=== PATIENT | female | born 1985 | race Caucasian/White ===

== ENCOUNTER 2016-12-11 06:40 | Inpatient (IN) | payer OTHER ==
[2016-12-11 09:24] LABS: % IMMATURE GRANULYOCYTES 0.6 % (0.0-1.1); ABSOLUTE IMMATURE GRANULOCYTES 0.07 10^3/uL (0.00-0.10); ADD DIFF? NO; ADD MORPH? NO; ADD SCAN? NO; ATYPICAL LYMPHOCYTE FLAG 0 (0-99); FRAGMENT RBC FLAG 0 (0-99); HEMATOCRIT 35.9 % (38.0-47.0); HEMOGLOBIN 12.1 g/dL (12.6-16.3); LEFT SHIFT FLG 0 (0-99); LIPEMIA HEMOLYSIS FLAG 80 (0-99); MEAN CELL HEMOGLOBIN 29.1 pg (27.9-34.1); MEAN CELL HEMOGLOBIN CONCENTR. 33.7 g/dL (32.4-36.7); MEAN CELL VOLUME 86.3 fL (81.5-99.8); PLATELET CLUMPS FLAG 0 (0-99); PLATELET COUNT 193 10^3/uL (150-400); RED BLOOD CELL COUNT 4.16 10^6/uL (4.18-5.33); RED CELL DISTRIBUTION WIDTH 14.6 % (11.5-15.2)
[2016-12-11] MEDS ORDERED: OXYTOCIN/RINGERS LACTATE 1,000 ML IV PRN (09:36)
[2016-12-11] MEDS ORDERED: TERBUTALINE SULFATE 1 MG/ML VIAL IV PRN (09:36)
[2016-12-11] MEDS ORDERED: LR 1,000 ML IV PRN (09:36)
[2016-12-11] MEDS ORDERED: EPSOM SALT 454 GM TP PRN (09:36)
[2016-12-11] MEDS ORDERED: OLIVE OIL 118 ML BTL MISC PRN (09:36)
[2016-12-11] MEDS ORDERED: OXYTOCIN 20 UNIT in LR 1,000 ML IV PRN (09:46)
[2016-12-11] MEDS ORDERED: LR 500 ML IV PRN (12:24)
[2016-12-11] MEDS ORDERED: OXYTOCIN/RINGERS LACTATE 500 ML IV SCH (12:30)
[2016-12-11] MEDS ORDERED: OXYTOCIN/LR *STANDARD DOSE PROTOCOL IV SCH (13:00)
[2016-12-11] MEDS ORDERED: LIDOCAINE 1% 300 MG/30 ML SDV ONE (13:00)
[2016-12-11] MEDS ORDERED: AMMONIA AROMATIC 1 EACH AMP IH ONE (13:00)
[2016-12-11] MEDS ORDERED: OLIVE OIL 118 ML BTL ONE (13:00)
[2016-12-11] MEDS ORDERED: TERBUTALINE SULFATE 1 MG/ML VIAL ONE (13:00)
[2016-12-11] MEDS ORDERED: OXYTOCIN 10 UNIT/ML VIAL ONE (13:01)
[2016-12-11] MEDS ORDERED: MISOPROSTOL 200 MCG TAB ONE (13:01)
[2016-12-11] MEDS: AMPICILLIN SODIUM 1 GM in NS 100 ML IV SCH ×3 (13:08→19:33)
[2016-12-11] MEDS ORDERED: AMPICILLIN SODIUM 1 GM in NS 100 ML IV SCH (13:37)
[2016-12-11] MEDS ORDERED: BUPIVACAINE 0.25% 30 ML SDV ONE ×2 (15:21→21:19)
[2016-12-11] MEDS ORDERED: fentaNYL 2MCG/ML/BUP 0.1% RTU 100 ML BAG EP ONE (15:22)
[2016-12-11] MEDS ORDERED: PHENYLEPHRINE HCL 100 MCG/ML SYR ONE (15:52)
--- NOTE | 2016-12-11 16:13 | PREANESOB ---
Obstetric Pre-Anesthesia Info - General Info : 2 Para: 0 - Info Status: Full Term Monitors: External - Labor Status Cervical Dilation per last OB SVE: 3 Pitocin: In Use Labor Epidural: Yes Anesthesia Allergies/Adverse Reactions: Allergy/AdvReac Type Severity Reaction Status Date / Time No Known Allergies Allergy Verified 02/08/12 02:33 Home Medications: Medication Instructions Recorded Fish Oil 1,200 mg Fish Oil 1 tab PO DAILY 12/11/16 Levothyroxine 0.25 mcg PO DAILY 12/11/16 1 tab PO DAILY 12/11/16 ZyrTEC 10 mg (*) 10 mg PO DAILY 12/11/16 Visit Medications: Generic Name Dose Route Start Last Admin Trade Name Freq PRN Reason Stop Dose Admin Lactated Ringer's 1,000 mls @ 0 mls/hr 12/11/16 09:36 Lr IV 06/09/17 09:35 PRN PRN SEE PROTOCOL CONDITIONS Protocol Per Protocol Oxytocin 20 unit/ Lactated 1,002 mls @ 150 mls/hr 12/11/16 09:46 Ringer's IV PRN PRN POST- BLEEDING Ampicillin Sodium 1 gm/ Sodium 100 mls @ 200 mls/hr 12/11/16 11:30 12/11/16 15:55 Chloride IV 01/10/17 11:29 100 mls Q4H CHRISTINE Administration Protocol Lactated Ringer's 500 mls @ 500 mls/hr 12/11/16 12:24 Lr IV PRN PRN Maternal Hypotension Oxytocin 30 unit/ Lactated 503 mls @ 0 mls/hr 12/11/16 13:00 12/11/16 13:08 Ringer's IV 06/09/17 12:59 Not Given CONT CHRISTINE Protocol Per Protocol Ibuprofen 600 mg 12/11/16 09:36 Motrin PO 06/09/17 09:35 Q6HRS PRN post , inflammation Magnesium Sulfate 454 gm 12/11/16 09:36 Epsom Salt TP 06/09/17 09:35 Q1H PRN perineal discomfort Flushing Oil 118 ml 12/11/16 09:36 Sweet Oil MISC 06/09/17 09:35 ONCE PRN perineal massage Terbutaline Sulfate 0.25 mg 12/11/16 09:36 Brethine IV 06/09/17 09:35 ONCE PRN Tachysystole Discontinued Medications Generic Name Dose Route Start Last Admin Trade Name Gideon PRN Reason Stop Dose Admin Ammonia (Aromatic Spirit) Confirm 12/11/16 13:00 Ammonia Aromatic Administered 12/11/16 13:01 Dose 1 each IH .STK-MED ONE Bupivacaine HCl Confirm 12/11/16 15:21 Sensorcaine 0.25% Sdv Administered 12/11/16 15:22 Dose 30 ml .ROUTE .STK-MED ONE Ephedrine Sulfate Confirm 12/11/16 13:00 Ephedrine Sulfate Administered 12/11/16 13:01 Dose 50 mg .ROUTE .STK-MED ONE Fentanyl/Bupivacaine HCl Confirm 12/11/16 15:22 Fentanyl/Bupivacaine/Ns 2 Mcg/Ml 0.1% (Premix Administered 12/11/16 15:23 Dose 100 ml EP .STK-MED ONE Ampicillin Sodium 1 gm/ Sodium 100 mls @ 200 mls/hr 12/11/16 13:37 12/11/16 11:38 Chloride IV 01/10/17 13:36 100 mls Q4H CHRISTINE Administration Protocol Oxytocin/Lactated Ringer's 1,000 mls @ 150 mls/hr 12/11/16 09:36 Pitocin 20 Units/Lr (Premix) IV PRN PRN Post- bleeding Oxytocin/Lactated Ringer's 500 mls @ 0 mls/hr 12/11/16 12:30 Pitocin 30 Units/Lr (Premix) IV 06/09/17 12:29 CONT CHRISTINE Protocol Per Protocol Lidocaine HCl Confirm 12/11/16 13:00 Lidocaine Hcl 1% Administered 12/11/16 13:01 Dose 300 mg .ROUTE .STK-MED ONE Misoprostol Confirm 12/11/16 13:01 Cytotec Administered 12/11/16 13:02 Dose 800 mcg .ROUTE .STK-MED ONE Flushing Oil Confirm 12/11/16 13:00 Sweet Oil Administered 12/11/16 13:01 Dose 118 ml .ROUTE .STK-MED ONE Oxytocin Confirm 12/11/16 13:01 Pitocin Administered 12/11/16 13:02 Dose 40 unit .ROUTE .STK-MED ONE Phenylephrine HCl Confirm 12/11/16 15:52 Neosynephrine Administered 12/11/16 15:53 Dose 1,000 mcg .ROUTE .STK-MED ONE Terbutaline Sulfate Confirm 12/11/16 13:00 Brethine Administered 12/11/16 13:01 Dose 1 mg .ROUTE .STK-MED ONE - Anesthesia History Response to Local Anesthetics: Normal Anesthesia & Operative History: No Prior Problems - Social History Substance Use/Abuse: Denies - Focused Exam Height/Weight (Nursing): Height 162.56 cm Weight 80.739 kg ASA Status: I Labs: 12/11/16 08:25 Patient ABO/Rh A NEGATIVE 12/11/16 08:25
[2016-12-11] MEDS ORDERED: ONDANSETRON 4 MG/2 ML VIAL IVP PRN (16:16)
[2016-12-11] MEDS ORDERED: METOCLOPRAMIDE 10 MG/2 ML VIAL IVP PRN (16:16)
[2016-12-11] MEDS ORDERED: PHENYLEPHRINE HCL 100 MCG/ML SYR IVP PRN (16:16)
[2016-12-11] MEDS ORDERED: fentaNYL 2MCG/ML/BUP 0.1% RTU 100 ML EP SCH (16:30)
[2016-12-11] MEDS ORDERED: LR 500 ML IV SCH (16:30)
[2016-12-11] MEDS ORDERED: SIMETHICONE 80 MG TAB CHEW PO PRN (23:37)
[2016-12-11] MEDS ORDERED: HYDROCORTISONE 0.5% CREAM TP PRN (23:37)
[2016-12-11] MEDS ORDERED: HYDROCODONE/APAP 5/325 TAB PO PRN (23:37)
--- NOTE | 2016-12-11 23:45 | OBDEL ---
Info Type: Vaginal Presentation at Delivery: Vertex L&D Analgesia/Anesthesia Type: Epidural GBS+: Yes Antibiotic Used for + GBS: Ampicillin (x3) Intrapartum Medications: Generic Name Dose Route Start Last Admin Trade Name Frecami PRN Reason Stop Dose Admin Ampicillin Sodium 1 gm/ Sodium 100 mls @ 200 mls/hr 12/11/16 11:30 12/11/16 19:33 Chloride IV 01/10/17 11:29 100 mls Q4H CHRISTINE Administration Protocol Oxytocin 30 unit/ Lactated 503 mls @ 0 mls/hr 12/11/16 13:00 12/11/16 13:08 Ringer's IV 06/09/17 12:59 Not Given CONT CHRISTINE Protocol Per Protocol Discontinued Medications Generic Name Dose Route Start Last Admin Trade Name Freq PRN Reason Stop Dose Admin Ampicillin Sodium 1 gm/ Sodium 100 mls @ 200 mls/hr 12/11/16 13:37 12/11/16 11:38 Chloride IV 01/10/17 13:36 100 mls Q4H CHRISTINE Administration Protocol - Hospital Course Intrapartum: Presents with +LOF at 0300-clear and occ ctx's. complicated by Rh negative-s/p Rhogam; Rubella non-immune. Hypothyroid-pt stopped Levo about 1 week ago. Just got Tdap and wants flu vaccine. GBS+ 12/11/16 23:41 Indications for Delivery: SROM Vaginal Delivery - Delivery Provider Delivery Physician/CNM: Venita Tim - Labor and Delivery Onset of Contractions Date: 12/11/16 Onset of Contractions Time: 03:30 Onset of Contractions Type: Augmented Rupture of Membranes Date: 12/11/16 Rupture of Membranes Time: 03:00 Rupture of Membranes Type: Spontaneous Amniotic Fluid Color: Clear Dilation Complete Date: 12/11/16 Dilation Complete Time: 21:55 Placenta Delivery Date: 12/11/16 Placenta Delivery Time: 23:15 Total Hours of Labor: 19 Laceration: 2nd Degree Repair: 3-0, Vicryl Vaginal Sponge Count Correct: Yes Vaginal Needle Count Correct: Yes Vaginal Sweep Performed: Yes EBL: 300cc Delivery Events: None Delivery Comment: Uncomplicated - Medications Labor Augmentation/Induction Methods Used: Pitocin Labor Augmentation/Induction Indication: Inadequate Ctx Strength (No cervical change) [place] Data Young Delivery Date: 12/11/16 Delivery Time: 23:10 JACINTA: 12/14/16 Gestational Age: 39 week(s) and 4 day(s) Sex of Infant: Female Score (1 Min): 8 Score (5 Min): 9 ICD10 Worksheet Patient Problems: Problems Problem Status Onset SROM (spontaneous rupture of membranes) Acute (spontaneous vaginal delivery) Acute - ICD10 Problem Qualifiers (1) SROM (spontaneous rupture of membranes) (2) (spontaneous vaginal delivery)
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
[2016-12-12] MEDS: IBUPROFEN 600 MG TAB PO PRN ×4 (00:29→19:20)
[2016-12-12] MEDS: AMPICILLIN SODIUM 1 GM in NS 100 ML IV SCH (01:08)
[2016-12-12] MEDS: DOCUSATE SODIUM 100 MG CAP PO PRN ×2 (09:58→21:03)
--- NOTE | 2016-12-12 13:30 | OBPP ---
Progress Note Assessment/Plan: Assessment: 31 yo PPD#1 s/p on 12/11/16. Doing well. Plan: Routine PP care. 12/12/16 13:27 Subjective/ Course: 12/12/16 13:27 Patient is doing well. She is , she denies significant pain--well controlled with ibuprofen. She is ambulating and reports minimal lochia. Objective: 12/11/16 08:25 Patient ABO/Rh A NEGATIVE 12/11/16 08:25 Temp Pulse Resp BP Pulse Ox 36.6 C 78 16 103/71 95 12/12/16 08:00 12/12/16 08:00 12/12/16 08:00 12/12/16 08:00 12/12/16 08:00 Gen: AAO x 3 HENT: atraumatic, normocephalic Heart: RRR, no m/r/g Lungs: CTAB Abdomen: soft, non-tender, FF and below umbilicus Extremities: no excessive swelling in BLE Uterine Position/Fundal Height: Umbilicus -2 Uterine Tone: Firm
[2016-12-12] MEDS ORDERED: FLU VACC QS 2017-18 (3YR+)/PF 0.5 ML SYR (FLUARIX QUAD) IM ONE (20:33)
[2016-12-12] MEDS: HYDROCORTISONE 1% CREAM TP SCH (21:03)
[2016-12-13] MEDS: HYDROCORTISONE 1% CREAM TP SCH ×2 (07:10→07:52)
[2016-12-13] MEDS: DOCUSATE SODIUM 100 MG CAP PO PRN (07:52)
[2016-12-13] MEDS: IBUPROFEN 600 MG TAB PO PRN (07:52)
--- NOTE | 2016-12-13 09:40 | OBPP ---
Progress Note Assessment/Plan: Assessment: 1) s/p PPD # 2 - pt is stable 2) Rh negative - Rhogam eval 3) Rubella non-immune - to get MMR Plan: Plan for d/c home at noon Instructions reviewed with pt No RX given Cont PNV and colace Pelvic rest RTC in 4 and 6 weeks for pp visit 12/13/16 09:44 Subjective/ Course: 12/12/16 13:27 Patient is doing well. She is , she denies significant pain--well controlled with ibuprofen. She is ambulating and reports minimal lochia. 12/13/16 09:41 Pt seen and examined. Doing well with no complaints. Mild cramping. Elías regular diet, voiding and passing flatus. No BM yet. Mod lochia. BF well, but has really sore nipples. She has been working with . Objective: 12/11/16 08:25 Patient ABO/Rh A NEGATIVE 12/11/16 08:25 Temp Pulse Resp BP Pulse Ox 36.1 C 88 16 101/60 93 12/12/16 21:08 12/12/16 21:08 12/12/16 21:08 12/12/16 21:08 12/12/16 21:08 Uterine Position/Fundal Height: Umbilicus -2 Uterine Tone: Firm Physical Exam - Physical Exam Respiratory: lungs clear, normal breath sounds Cardiac/Chest: regular rate, rhythm Abdomen: normal bowel sounds, non-tender, soft, flatus (+) Extremities: non-tender, normal inspection Skin: normal color, warm/dry Neuro/Psych: alert, normal mood/affect, oriented x 3
--- NOTE | 2016-12-13 09:47 | OBGCSDC ---
General Delivery Information - General Info : 2 Para: 1 Abortions: 0 Type: Vaginal L&D Analgesia/Anesthesia Type: Epidural Admission Date: 12/11/16 Labs: Patient ABO/Rh A NEGATIVE 12/11/16 08:25 Hct 35.9 % (38.0-47.0) L 12/11/16 08:25 - Hospital Course Antepartum: 12/13/16 09:45 mostly uncomplicated. Rh negative, s/p Rhogam; Rubella non-immune. Hypothyroid-pt stopped Levo about 1 week ago. Just got Tdap and wants flu vaccine. GBS+ Intrapartum: Presents with +LOF at 0300-clear and occ ctx's. 12/11/16 23:41 : 12/12/16 13:27 Patient is doing well. She is , she denies significant pain--well controlled with ibuprofen. She is ambulating and reports minimal lochia. 12/13/16 09:41 Pt seen and examined. Doing well with no complaints. Mild cramping. Elías regular diet, voiding and passing flatus. No BM yet. Mod lochia. BF well, but has really sore nipples. She has been working with . Vaginal - Delivery Provider Delivery Physician/CNM: Venita Tim - Diagnosis Labor: Augmented Rupture of Membranes Type: Spontaneous Amniotic Fluid Color: Clear Laceration: 2nd Degree Repair: 3-0, Vicryl Delivery Events: None - Delivery EBL: 300cc [place] Data Young Delivery Date: 12/11/16 Delivery Time: 23:10 JACINTA: 12/14/16 Gestational Age: 39 week(s) and 6 day(s) Sex of : Female Weight (gm): 3050 g Score (1 Min): 8 Score (5 Min): 9 Discharge Information - Discharge Information Condition: Good Instruction/Follow Up: Four Weeks, Six Weeks
[2016-12-13] MEDS ORDERED: MEASLES,MUMPS&RUBELLA VACC/PF 0.5 ML VIAL SC ONE (09:48)
[2016-12-13 09:51] VITALS: BP 109/80; PULSE 74; RESP 17; TEMP 97.9; O2SAT 98
== END 2016-12-13 13:05 | disposition home or self-care (01) | DRG 775 ==
LOC: FLD 06:40 → OBSVTOIN 09:42 → FOB 12-12 01:30
PROVIDERS: ADMIT Obstetrics & Gynecology Gynecology; ATTEND Obstetrics & Gynecology
PROC: 3E033VJ Introduction of Other Hormone into Peripheral Vein, Percutaneous Approach (ICD-10-PCS; principal; 2016-12-11)
PROC: 3E03329 Introduction of Other Anti-infective into Peripheral Vein, Percutaneous Approach (ICD-10-PCS; principal; 2016-12-11)
PROC: 10E0XZZ Delivery of Products of Conception, External Approach (ICD-10-PCS; principal; 2016-12-11)
PROC: 0KQM0ZZ Repair Perineum Muscle, Open Approach (ICD-10-PCS; principal; 2016-12-11)
DX: O42.02 Full-term premature rupture of membranes, onset of labor within 24 hours of rupture (principal); O70.1 Second degree perineal laceration during delivery; O36.0130 Maternal care for anti-D [Rh] antibodies, third trimester, not applicable or unspecified; O99.280 Endocrine, nutritional and metabolic diseases complicating pregnancy, unspecified trimester; O99.824 Streptococcus B carrier state complicating childbirth; E03.9 Hypothyroidism, unspecified; Z87.440 Personal history of urinary (tract) infections; Z37.0 Single live birth; Z3A.39 39 weeks gestation of pregnancy; Z23 Encounter for immunization
CPT/HCPCS: G0008; J0290; J2370; J3105

== ENCOUNTER → 2016-12-21 | Outpatient (CLI) | payer OTHER | LOC: FLACT 10:14 | PROVIDERS: ATTEND Obstetrics & Gynecology | DX: O92.13 Cracked nipple associated with lactation (principal) | CPT/HCPCS: G0463 ==

== ENCOUNTER → 2017-07-05 | Outpatient (CLI) | payer OTHER | LOC: FIMAGING 07:26 | PROVIDERS: ATTEND Hospitalist | DX: O30.011 Twin pregnancy, monochorionic/monoamniotic, first trimester (principal); O36.8310 Maternal care for abnormalities of the fetal heart rate or rhythm, first trimester, not applicable or unspecified; O09.291 Supervision of pregnancy with other poor reproductive or obstetric history, first trimester; Z3A.09 9 weeks gestation of pregnancy ==

== ENCOUNTER 2017-07-06 06:26 | Day surgery (SDC) | payer OTHER ==
--- NOTE | 2017-07-05 19:57 | GHP ---
[f rep st] PREOP HISTORY AND PHYSICAL DATE OF ADMISSION: 07/06/2017 Patient is slated for surgery on 07/06/2017, on the Gynecology service. HISTORY UPON PRESENTATION: Patient is a 32-year-old, G3, P1, A1, who has been diagnosed with a misse d AB at 8 weeks gestation. She was found to have no cardiac activity. 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 The patient had previously been seen with lilliam goodson for an abnormally formed on June 24, and there was a heart beat at that point of 14 8 beats per minute. The patient has continued to have normal symptoms and has not had any bleeding or cramping. The patient is advised as to the options of management of missed AB, and she a nd her want to proceed with a D and C for definitive management. The patient knows the optio n of awaiting a miscarriage versus using Cytotec to induce a miscarriage. The patient understands th ere is low risk of complications or subsequent issues with scar tissue for her uterus. Full informat ion about the procedure will be discussed at bedside with Dr. Tim on the day of surgery, and the c onsent forms will be signed then. The patient has A-negative blood type, and is aware that she will want to have RhoGAM after the procedure in the hospital. PAST MEDICAL HISTORY: Abnormal Pap smear, at which time a colposcopy was performed in 2005, and the pathology was benign. The patient had infertility issues in 2015 and saw [facility], and had an intrauteri ne insemination. This was spontaneous and was unplanned, but welcomed. The patient was co ncerned when the looked malformed, and has mixed emotions now about the loss. Th e patient has a history of asthma and had a workup at [facility] that was negative. The patient with hypothyroidism. History of several UTIs and history of pyelonephritis. PAST SURGICAL HISTORY: Sinus surgery in 2005, omentectomy in the past. HISTORY: Patient had a spontaneous AB at 4-5 weeks gestation in January 2016. She did no t receive RhoGAM at that time. In November 2016, she had a viable female at 6 pounds 11.5 ounces by vaginal delivery with an epidural. ALLERGIES: The patient reports an allergy to doxycycline, with symptoms of headache and blurred visi on. CURRENT MEDICATIONS: Levothyroxine at 25 mcg a day, vitamins, DHEA. SOCIAL HISTORY: The patient is , lives with her , Magdaleno, and their daughter, Mecca. The patient is a nonsmoker. No alcohol or drug use. PHYSICAL EXAMINATION: GENERAL: At the time of preop, the patient is a well-developed, well-nourishe d white female in no physical discomfort, but emotionally upset after the ultrasound. VITAL SIGNS: The patient is clinically afebrile. Blood pressure 98/70. LUNGS: Clear to auscultation bilaterally . CARDIOVASCULAR: Regular rate and rhythm. ABDOMEN: Soft and nontender. PELVIC: Exam is not per formed. ASSESSMENT: Missed AB of a conjoined twin . Patient wants to proceed with D and C for jeff sandoval, and this is scheduled on July 06. PLAN: The patient will be n.p.o. prior to the procedure. She will have preoperative antibiotics, an d she will receive RhoGAM after the procedure. The patient is her 7-month-old and woul d like to minimize anesthesia to continue . Advised the patient to take her thyroid on schedule, but to defer her vitamins. /[id number]/MODL
[2017-07-06] MEDS ORDERED: CLINDAMYCIN 600 MG/DEXTROSE 50 ML IV ONE (06:55)
[2017-07-06] MEDS ORDERED: LR 1,000 ML IV ONE (06:55)
[2017-07-06] MEDS ORDERED: MIDAZOLAM 2 MG/2 ML VIAL IVP ONE (07:22)
--- NOTE | 2017-07-06 07:22 | PDANEPAE ---
ANE History of Present Illness retained POC here for D+C ANE Past Medical History - Cardiovascular History Hx Hypertension: No Hx Arrhythmias: No Hx Chest Pain: No - Pulmonary History Hx Sleep Apnea: No Sleep Apnea Screening Result - Last Documented: Negative - Endocrine History Hx Diabetes: No Hypothyroid: Yes - Chronic Pain History Chronic Pain: No ANE Review of Systems Review of Systems: - Exercise capacity Exercise capacity: >=4 METS ANE Patient History - Allergies Allergies/Adverse Reactions: doxycycline Allergy (Verified 07/06/17 06:47) - Home Medications Home Medications: Levothyroxine [Synthroid 25 mcg (*)] 07/06/17 [Last Taken 07/06/17 05:45] - NPO status NPO Status: no food or drink >8 hours NPO Since - Liquids (Date): 07/05/17 NPO Since - Liquids (Time): 20:45 NPO Since - Solids (Date): 07/05/17 NPO Since - Solids (Time): 21:50 - Anes Hx Anes Hx: no prior problems - Smoking Hx Smoking Status: Never smoked - Alcohol Use Alcohol Use: None - Family Anes Hx Family Anes Hx: none ANE Labs/Vital Signs - Vital Signs Height: 160.02 cm Weight: 65.771 kg ANE Physical Exam - Airway Neck exam: FROM Mallampati Score: Class 2 Mouth exam: normal dental/mouth exam - Pulmonary Pulmonary: no respiratory distress, clear to auscultation - Cardiovascular Cardiovascular: regular rate and rhythym, no murmur, rub, or gallop - ASA Status ASA Status: II ANE Anesthesia Plan Anesthesia Plan: GA w LMA, GA with mask
[2017-07-06] MEDS ORDERED: PROPOFOL/EMULSION 500 MG/50 ML BOTTLE IV ONE (07:27)
[2017-07-06] MEDS ORDERED: MIDAZOLAM 2 MG/2 ML VIAL ONE (08:01)
--- NOTE | 2017-07-06 08:54 | POSTOPPROG ---
Post Op Note Date of Operation: 07/06/17 Surgeon: Venita Tmi Pooling Operator: None Anesthesiologist: Dr. Lynch Anesthesia: LMA Pre-op Diagnosis: Missed Ab @ 8 weeks Post-op Diagnosis: Missed Ab at 8 weeks Indication: 32 y/o w/ missed Ab at 8 wks; u/s showed mo-mo twins, likely conjoined Procedure: Suction D&C under u/s guidance Findings: Uterus sounded to 9-10 cm; cervix closed; mod amount POCs noted Inf/Abcess present in the surg proc area at time of surgery?: No Depth: Organ Space EBL: 50-100 (100 cc) Total fluids administered: 200 cc LR Complications: None Drains: Constavac Specimen(s): POCs
[2017-07-06] MEDS ORDERED: ACETAMINOPHEN 500 MG TAB PO PRN (09:01)
[2017-07-06] MEDS ORDERED: PROMETHAZINE HCL 25 MG/ML INJ IVP PRN (09:01)
[2017-07-06] MEDS ORDERED: ONDANSETRON 4 MG/2 ML VIAL IVP PRN (09:01)
[2017-07-06] MEDS ORDERED: NALOXONE HCL 0.4 MG/ML INJ IVP PRN (09:01)
--- NOTE | 2017-07-06 09:01 | POSTANESTH ---
Post Anesthetic Evaluation Cardiovascular Status: Normal, Stable, Similar to Pre-Op Cond Respiratory Status: Normal, Stable, Similar to Pre-op Cond. Level of Consciousness/Mental Status: Can Participate in Eval, Alert and Oriented Pain Control: Adequate, Prn Tx Ordered Nausea/Vomiting Control: Adequate, Prn Tx Ordered Complications Possibly Related to Anesthesia: None Noted
[2017-07-06] MEDS ORDERED: KETOROLAC 30 MG/1 ML SDV IVP ONE (09:20)
[2017-07-06 11:03] VITALS: BP 101/74
--- NOTE | 2017-07-06 15:36 | GOP ---
[f rep st] OPERATIVE REPORT DATE OF OPERATION: 07/06/17 SURGEON: Venita Tim DO STUDIO DIRECTOR: None. ANESTHESIA: LMA. ANESTHESIOLOGIST: Chandrakant Lynch MD. PREOPERATIVE DIAGNOSIS: Missed at 8 weeks. POSTOPERATIVE DIAGNOSIS: Missed at 8 weeks. PROCEDURE PERFORMED: Suction dilatation and curettage. EBL: 100 cc IVFs: 200 cc LR FINDINGS: On bimanual exam, the uterus was approximately 9-10 weeks, anteverted , mobile. Cervix was closed with no active bleeding noted. The uterus sounded to 9-10 cm. There was a moderate amount of tissue obtained. Minimal bleeding noted at the end of the procedure. SPECIMENS: Products of conception. INDICATIONS: Patient is a 32-year-old 3, para 1-0-1-1, with a missed AB at 8 weeks. Patient presented to the office about a week ago with positive test and had an ultrasound showing a viable mono-mono TIUP, however, likely conjoined with only one chest cavity and one heart. Patient had a follow up visit with [facility] and had an ultrasound showing no heartbeat and a demise at 8 weeks. Patient decided she wanted to proceed with surgery, suction D and C for removal of products of conception. Surgical consents were obtained at bedside. Discussed risks, benefits, and alternatives with the patient including, but not limited to, bleeding, infection, and risk of uterine perforation. The patient understands all risks of surgery and wants to proceed with surgery. DESCRIPTION OF PROCEDURE: Patient was taken to the operating room, where anesthesia was obtained without difficulty. She was then positioned in the dorsal lithotomy position, prepped and draped in normal sterile fashion. Once the anesthetic was found to be adequate, bimanual exam was performed. Next, an open-ended speculum was placed in the vagina. The anterior lip of the cervix was grasped with an Allis clamp. The cervix was noted to be closed. It was dilated up to a #9 Hegar. The uterus was then sounded to 9-10 cm. A curved 9 suction curette was then used, connected to suction, placed in the cervix and gently passed up into the uterus. A suction curettage was performed multiple times. This was done under ultrasound guidance to visualize removal of products of conception. Next, we turned our attention to sharp curettage. This was performed, only obtaining a small amount of tissue, and was done until a gritty texture was noted in all 4 quadrants of the uterus. We then followed this with suction curettage to make sure there was removal of any remaining products of conception. This was done under ultrasound, and again, a thin stripe was noted with no retaining products. All instruments were then removed from the vagina. Minimal bleeding was noted. The patient tolerated the procedure well. No complications. Instruments, lap counts were correct x2. The patient was then taken out of lithotomy position, awakened, and taken to recovery room in stable condition.The patient is Rh negative, and will receive RhoGAM postoperatively in the PACU. /[id number]/MODL MTDD
== END 2017-07-06 11:55 | disposition home or self-care (01) ==
LOC: FOBOP 06:26
PROVIDERS: ATTEND Obstetrics & Gynecology
PROC: 10D17ZZ Extraction of Products of Conception, Retained, Via Natural or Artificial Opening (ICD-10-PCS; principal; 2017-07-06)
DX: O02.1 Missed abortion (principal); E03.9 Hypothyroidism, unspecified
CPT/HCPCS: J2250; J2704

== ENCOUNTER 2017-07-10 22:40 | Emergency (ER) | payer OTHER ==
[2017-07-10] MEDS ORDERED: NS 1,000 ML IV ONE (22:54)
--- NOTE | 2017-07-10 22:54 | EDPHY ---
H & P Stated Complaint: miscarraige/d&c 4 days ago, today pt large amt of bleeding/ cramping Time Seen by Provider: 07/10/17 22:54 HPI/ROS: HPI CHIEF COMPLAINT: Vaginal bleeding., recent D and C HISTORY OF PRESENT ILLNESS: This patient 32-year-old female, she recently had a D and C on Tuesday for a conjoined twin miscarriage, the she states she had some light bleeding today however around 8:00 p.m. She started passing large blood clots and some abdominal cramping. She reports 4-5 clots the size of her fist. Denies any fever vomiting. Denies significant abdominal pain but does have some pelvic cramping. She called her OBGYN and was referred here to the emergency room. Past Medical History: Thyroid disease Past Surgical History: Recent D and C Social History: Denies daily use of drugs alcohol tobacco products. Family History: Noncontributory ROS REVIEW OF SYSTEMS: A comprehensive 10 point review of systems is otherwise negative aside from elements mentioned in the history of present illness. Exam Constitutional appears well nontoxic no acute distress, triage nursing summary reviewed, vital signs reviewed, awake/alert. Eyes normal conjunctivae and sclera, EOMI, PERRLA. HENT normal inspection, atraumatic, moist mucus membranes, no epistaxis, neck supple/ no meningismus, no raccoon eyes. Respiratory clear to auscultation bilaterally, normal breath sounds, no respiratory distress, no wheezing. Cardiovascular rate normal, regular rhythm, no murmur, no edema, distal pulses normal. Gastrointestinal soft, non-tender, no rebound, no guarding, normal bowel sounds, no distension, no pulsatile mass. Genitourinary pelvic exam: Ara RN at bedside, external look. No significant bleeding at this time. Musculoskeletal no midline vertebral tenderness, full range of motion, no calf swelling, no tenderness of extremities, no meningismus, good pulses, neurovascularly intact. Skin pink, warm, & dry, no rash, skin atraumatic. Neurologic awake, alert and oriented x 3, AAOx3, moves all 4 extremities equally, motor intact, sensory intact, CN II-XII intact, normal cerebellar, normal vision, normal speech. Psychiatric normal mood/affect. Heme/Lymph/Immune no lymphadenopathy. Differential Diagnosis: Includes but is not limited to in a particular order acute pelvic bleeding, significant vaginal bleeding leading to blood loss anemia , retained products Medical Decision Making: Plan for this patient IV establishment, check blood work, pelvic ultrasound, type and screen, re-evaluate. OBGYN consult. Re-evaluation: 2354: Patient's ultrasound reviewed. No evidence retained products. Small amount of hematoma in the lower uterine segment. Patient's vital signs are stable. Patient's blood work is stable. Spoke with Dr. Deepali Mcdonald. 2355: Spoke Dr. Deepali Mcdonald reviewed the ultrasound blood work and vitals with her. Recommends Methergine 0.2MG IM. I have ordered this with the patient. Given that the patient is not having significant bleeding here in ultrasound does not show evidence retained products H&H are stable vital signs are stable. Most likely allow the patient to go home after period of observation after Methergine. Discussed this with the patient. 0144: This patient received Methergine, no significant abdominal pain she does have some mild cramping no significant bleeding she is requesting discharge home. I went over return precautions with her she understands return emergency room she develops worsening abdominal pain, pelvic pain, cramping, bleeding. She understands return emergency room she feels worse. Additionally close follow up with OBGYN. I did explain to her that she will have some vaginal bleeding and ongoing cramping today or for the next 24 hr given that she got IM Methergine. If she has severe heavy bleeding syncope chest pain shortness of breath lightheadedness dizziness significant abdominal pain significant vaginal bleeding she should return emergency room she understands and is comfortable this plan. Case discussed with Dr. Mcdonald. Source: Patient - Medical/Surgical History Hx Asthma: No Hx Chronic Respiratory Disease: No Hx Diabetes: No Hx Cardiac Disease: No Hx Renal Disease: No Hx Cirrhosis: No Hx Alcoholism: No Hx HIV/AIDS: No Hx Splenectomy or Spleen Trauma: No Other PMH: SINUS SURGERY 2004, hypothyroid - Social History Smoking Status: Never smoked Constitutional: Initial Vital Signs Temperature (C) 36.4 C 07/10/17 22:43 Heart Rate 79 07/10/17 22:43 Respiratory Rate 16 07/10/17 22:43 Blood Pressure 122/79 H 07/10/17 22:43 O2 Sat (%) 96 07/10/17 22:43 O2 Delivery Mode Room Air Allergies/Adverse Reactions: doxycycline Allergy (Verified 07/10/17 22:45) Home Medications: Medication Instructions Recorded Levothyroxine [Synthroid 25 mcg 07/06/17 (*)] Medical Decision Making - Diagnostics Imaging Results: Imaging Impressions Pelvic/Renal Ultrasound 07/10/17 22:55 Impression: Endometrial clot. No intrauterine vascular tissue to suggest retained products of conception. Results called to Dr. Nuñez at 11:40 PM. - Data Points Laboratory Results: Laboratory Results 07/10/17 23:05 07/10/17 23:05 07/10/17 07/10/17 07/10/17 23:05 23:05 23:05 WBC RBC Hgb Hct MCV MCH MCHC RDW Plt Count MPV Neut % (Auto) Lymph % (Auto) [place] % (Auto) Eos % (Auto) Baso % (Auto) Nucleat RBC Rel Count Absolute Neuts (auto) Absolute Lymphs (auto) Absolute Monos (auto) Absolute Eos (auto) Absolute Basos (auto) Absolute Nucleated RBC Immature Gran % Immature Gran # PT 11.6 SEC L SEC (12.0-15.0) INR 0.83 (0.83-1.16) APTT 23.8 SEC SEC (23.0-38.0) Sodium 142 mEq/L mEq/L (135-145) Potassium 4.0 mEq/L mEq/L (3.5-5.2) Chloride 108 mEq/L mEq/L (97-110) Carbon Dioxide 26 mEq/l mEq/l (22-31) Anion Gap 8 mEq/L mEq/L (8-16) BUN 12 mg/dL mg/dL (7-23) Creatinine 0.6 mg/dL mg/dL (0.6-1.0) Estimated GFR > 60 Glucose 96 mg/dL mg/dL (70-100) Calcium 9.5 mg/dL mg/dL (8.5-10.4) Patient ABO/Rh A NEGATIVE Antibody Screen POSITIVE Antibody Identification SIG ANTIBODIES RULED OUT 07/10/17 23:05 WBC 7.92 10^3/uL 10^3/uL (3.80-9.50) RBC 4.25 10^6/uL 10^6/uL (4.18-5.33) Hgb 12.5 g/dL L g/dL (12.6-16.3) Hct 37.3 % L % (38.0-47.0) MCV 87.8 fL fL (81.5-99.8) MCH 29.4 pg pg (27.9-34.1) MCHC 33.5 g/dL g/dL (32.4-36.7) RDW 13.2 % % (11.5-15.2) Plt Count 233 10^3/uL 10^3/uL (150-400) MPV 9.1 fL fL (8.7-11.7) Neut % (Auto) 57.3 % % (39.3-74.2) Lymph % (Auto) 33.0 % % (15.0-45.0) [place] % (Auto) 7.1 % % (4.5-13.0) Eos % (Auto) 1.6 % % (0.6-7.6) Baso % (Auto) 0.5 % % (0.3-1.7) Nucleat RBC Rel Count 0.0 % % (0.0-0.2) Absolute Neuts (auto) 4.54 10^3/uL 10^3/uL (1.70-6.50) Absolute Lymphs (auto) 2.61 10^3/uL 10^3/uL (1.00-3.00) Absolute Monos (auto) 0.56 10^3/uL 10^3/uL (0.30-0.80) Absolute Eos (auto) 0.13 10^3/uL 10^3/uL (0.03-0.40) Absolute Basos (auto) 0.04 10^3/uL 10^3/uL (0.02-0.10) Absolute Nucleated RBC 0.00 10^3/uL 10^3/uL (0-0.01) Immature Gran % 0.5 % % (0.0-1.1) Immature Gran # 0.04 10^3/uL 10^3/uL (0.00-0.10) PT INR APTT Sodium Potassium Chloride Carbon Dioxide Anion Gap BUN Creatinine Estimated GFR Glucose Calcium Patient ABO/Rh Antibody Screen Antibody Identification Medications Given: Discontinued Medications Sodium Chloride (Ns) 1,000 mls @ 0 mls/hr IV EDNOW ONE; Wide Open PRN Reason: Protocol Stop: 07/10/17 22:55 Last Admin: 07/10/17 23:08 Dose: 1,000 mls Methylergonovine Maleate (Methergine) 0.2 mg IM EDNOW ONE Stop: 07/10/17 23:50 Last Admin: 07/11/17 00:23 Dose: 0.2 mg Departure - Departure Disposition: Home, Routine, Self-Care Clinical Impression: Vaginal bleeding Condition: Good Instructions: Threatened Miscarriage (ED) Additional Instructions: 1. Return emergency room if he develops worsening vaginal bleeding you severe abdominal pain or you feel ill lightheaded. 2. Please follow up with OBGYN. 3. Return emergency room if you have any worsening symptoms questions or concerns. Referrals: Deepali Mcdonald MD [Primary Care Provider] - As per Instructions
[2017-07-10 23:21] LABS: PLATELET COUNT 233 10^3/uL (150-400)
[2017-07-10 23:30] LABS: INR 0.83 (0.83-1.16); PROTIME(PATIENT) 11.6 SEC (12.0-15.0)
[2017-07-10] MEDS ORDERED: METHYLERGONOVINE MAL 0.2 MG/ML INJ IM ONE (23:49)
[2017-07-11 02:03] VITALS: BP 109/59
== END 2017-07-11 02:02 | disposition home or self-care (01) ==
DX: N93.9 Abnormal uterine and vaginal bleeding, unspecified (principal); E86.9 Volume depletion, unspecified
CPT/HCPCS: J2210

== ENCOUNTER → 2018-02-02 | Outpatient (CLI) | payer OTHER | LOC: FIMAGING 13:51 | PROVIDERS: ATTEND Obstetrics & Gynecology | DX: O09.522 Supervision of elderly multigravida, second trimester (principal); Z3A.20 20 weeks gestation of pregnancy ==

== ENCOUNTER 2018-06-27 05:35 | Inpatient (IN) | payer OTHER ==
[2018-06-27] MEDS ORDERED: TERBUTALINE SULFATE 1 MG/ML VIAL IV PRN (06:47)
[2018-06-27] MEDS ORDERED: IBUPROFEN 600 MG TAB PO PRN (06:47)
[2018-06-27] MEDS ORDERED: OLIVE OIL 118 ML BTL MISC PRN (06:47)
[2018-06-27] MEDS ORDERED: EPSOM SALT 454 GM TP PRN (06:47)
[2018-06-27] MEDS ORDERED: OXYTOCIN/RINGERS LACTATE 500 ML IV SCH (06:47)
[2018-06-27] MEDS ORDERED: MISOPROSTOL 200 MCG TAB PO PRN (06:47)
[2018-06-27] MEDS ORDERED: LR 500 ML IV PRN (06:47)
[2018-06-27] MEDS ORDERED: AMMONIA AROMATIC 1 EACH AMP IH PRN (06:47)
[2018-06-27] MEDS ORDERED: LR 1,000 ML IV PRN (06:47)
[2018-06-27] MEDS ORDERED: LIDOCAINE 1% 300 MG/30 ML SDV SC PRN (06:47)
[2018-06-27] MEDS ORDERED: OXYTOCIN/RINGERS LACTATE 1,000 ML IV PRN (06:47)
[2018-06-27 06:56] LABS: PLATELET COUNT 179 10^3/uL (150-400)
[2018-06-27] MEDS ORDERED: D5W IV ONE (07:45)
[2018-06-27] MEDS ORDERED: PENICILLIN POTASSIUM IV ONE (07:45)
--- NOTE | 2018-06-27 08:04 | PDGENHP ---
History and Physical - Chief Complaint IOL - Elective, AMA - History of Present Illness Janet is a 33 yo today at 40w5d who presents for IOL - she was 4cm in clinic last week. IOL for AMA, elective, post-dates. Daughter Mecca was born via 1.5yrs ago - uncomplicated . Pushed for about an hour for [id number] baby girl. No significant lacerations, no PPH. She did have an SAB prior to Sarai and an MAB with apparent "conjoined twins" that required D&C. She reports that she's had the "stomach flu" over this past weekend and although overall feeling better - did have chills and rigors last night and got temp at home to 101. We have not had temps here on admission, taking Tylenol. No diarrhea or vomiting past few days. This otherwise complicated by Rh neg, Hypothyroid on 50mcg levo, GBS positive, remote h/o pyelo. Labs: A neg Antibody negative RPR NR Rubella immune Hep B neg HIV neg Standard neg CCRM UDS neg UCx neg Pap ASCUS HPV neg GCC neg AFP neg Innatal normal Glucola 96 Did get RhoGam 04/02/18 VZV immune GBS POSITIVE History Information - Allergies/Home Medication List Allergies/Adverse Reactions: doxycycline Allergy (Verified 07/10/17 22:45) Home Medications: Levothyroxine [Synthroid 25 mcg (*)] 07/06/17 [Last Taken 07/06/17 05:45] I have personally reviewed and updated: family history, medical history, social history, surgical history Past Medical History: Hypothyroid, AMA, Rh neg, remote h/o pyelo, h/o depression anxiety (no meds) - Surgical History Additional surgical history: Sinus surgery, wisdom teeth - Family History Positive for: non-pertinent - Social History Smoking Status: Never smoked Review of Systems Review of Systems: ROS: 10pt was reviewed & negative except for what was stated in HPI & below Physical Exam Physical Exam: FHR 135, mod ray, accels present, no decels. [place] irritable Constitutional: no apparent distress, appears nourished, not in pain Eyes: PERRL, anicteric sclera, EOMI Ears, Nose, Mouth, Throat: moist mucous membranes Lab Data & Imaging Review 06/27/18 06:45 WBC 13.15 10^3/uL (3.80-9.50) H 06/27/18 06:45 RBC 4.32 10^6/uL (4.18-5.33) 06/27/18 06:45 Hgb 12.3 g/dL (12.6-16.3) L 06/27/18 06:45 Hct 36.0 % (38.0-47.0) L 06/27/18 06:45 MCV 83.3 fL (81.5-99.8) 06/27/18 06:45 MCH 28.5 pg (27.9-34.1) 06/27/18 06:45 MCHC 34.2 g/dL (32.4-36.7) 06/27/18 06:45 RDW 14.7 % (11.5-15.2) 06/27/18 06:45 Plt Count 179 10^3/uL (150-400) 06/27/18 06:45 MPV 10.3 fL (8.7-11.7) 06/27/18 06:45 Neut % (Auto) 83.6 % (39.3-74.2) H 06/27/18 06:45 Lymph % (Auto) 8.7 % (15.0-45.0) L 06/27/18 06:45 [place] % (Auto) 6.7 % (4.5-13.0) 06/27/18 06:45 Eos % (Auto) 0.2 % (0.6-7.6) L 06/27/18 06:45 Baso % (Auto) 0.3 % (0.3-1.7) 06/27/18 06:45 Nucleat RBC Rel Count 0.0 % (0.0-0.2) 06/27/18 06:45 Absolute Neuts (auto) 10.98 10^3/uL (1.70-6.50) H 06/27/18 06:45 Absolute Lymphs (auto) 1.15 10^3/uL (1.00-3.00) 06/27/18 06:45 Absolute Monos (auto) 0.88 10^3/uL (0.30-0.80) H 06/27/18 06:45 Absolute Eos (auto) 0.03 10^3/uL (0.03-0.40) 06/27/18 06:45 Absolute Basos (auto) 0.04 10^3/uL (0.02-0.10) 06/27/18 06:45 Absolute Nucleated RBC 0.00 10^3/uL (0-0.01) 06/27/18 06:45 Immature Gran % 0.5 % (0.0-1.1) 06/27/18 06:45 Immature Gran # 0.07 10^3/uL (0.00-0.10) 06/27/18 06:45 Patient ABO/Rh A NEGATIVE 06/27/18 06:45 Antibody Screen NEGATIVE 06/27/18 06:45 Assessment & Plan Assessment: 33 yo at 40w5d here for IOL. She reports that she's had the "stomach flu" over this past weekend and although overall feeling better - did have chills and rigors last night and got temp at home to 101. We have not had temps here on admission, taking Tylenol. No diarrhea or vomiting past few days. IOL: PCN to start this AM, then Pitocin 2 hours after 1st dose is in. AROM once in regular pattern and 2 doses abx infused. Rh neg: screen and RhoGam PRN. Hypothyroid: Continue 50mcg Levo (ordered). GBS pos: PCN Thinks she will want an epidural. Stomach flu: Tylenol PRN, observe, we've not had any fevers here. No other clear reason for temps at home. [place]
[2018-06-27] MEDS ORDERED: OXYTOCIN 10 UNIT/ML VIAL ONE (10:34)
[2018-06-27] MEDS ORDERED: OLIVE OIL 118 ML BTL MISC ONE (10:34)
[2018-06-27] MEDS ORDERED: AMMONIA AROMATIC 1 EACH AMP IH ONE (10:34)
[2018-06-27] MEDS ORDERED: TERBUTALINE SULFATE 1 MG/ML VIAL ONE (10:34)
[2018-06-27] MEDS ORDERED: MISOPROSTOL 200 MCG TAB ONE (10:34)
[2018-06-27] MEDS ORDERED: LIDOCAINE 1% 300 MG/30 ML SDV ONE (10:34)
[2018-06-27] MEDS: PENICILLIN G POTASSIUM 2,500,000 UNIT in D5W 150 ML IV SCH ×2 (12:02→15:58)
[2018-06-27] MEDS ORDERED: PHENYLEPHRINE HCL 100 MCG/ML SYR ONE (13:14)
[2018-06-27] MEDS ORDERED: fentaNYL 2MCG/ML/BUP 0.1% RTU 100 ML BAG EP ONE (13:14)
[2018-06-27] MEDS ORDERED: PHENYLEPHRINE HCL 100 MCG/ML SYR IVP PRN (13:41)
--- NOTE | 2018-06-27 13:41 | PREANESOB ---
Obstetric Pre-Anesthesia Info - General Info Proposed Procedure: JOHN : 4 Para: 1 JACINTA: 06/22/18 Gestational Age: 40 week(s) and 5 day(s) - Info Status: Full Term, Young Monitors: External FHR Pattern: Reassuring - Labor Status Indications for Labor Analgesia: Pain Control Labor Epidural: Proposed Anesthesia Allergies/Adverse Reactions: Allergy/AdvReac Type Severity Reaction Status Date / Time doxycycline Allergy Verified 07/10/17 22:45 Home Medications: Medication Instructions Recorded Levothyroxine [Synthroid 25 mcg 07/06/17 (*)] Visit Medications: Generic Name Dose Route Start Last Admin Trade Name Freq PRN Reason Stop Dose Admin Ammonia (Aromatic Spirit) 1 each 06/27/18 06:47 Ammonia Aromatic IH 07/07/18 06:46 ONCE PRN Fainting Lactated Ringer's 1,000 mls @ 0 mls/hr 06/27/18 06:47 06/27/18 08:14 Lr IV 06/28/18 06:46 1,000 mls PRN PRN Administration SEE PROTOCOL CONDITIONS Protocol Per Protocol Oxytocin/Lactated Ringer's 500 mls @ 0 mls/hr 06/27/18 06:47 06/27/18 10:04 Pitocin 30 Units/Lr (Premix) IV 12/24/18 06:46 500 mls CONT CHRISTINE Administration Protocol Per Protocol Oxytocin/Lactated Ringer's 1,000 mls @ 0 mls/hr 06/27/18 06:47 Pitocin 20 Units/Lr (Premix) IV PRN PRN Post bleeding Per Protocol Penicillin G Potassium 2,500, 155 mls @ 155 mls/hr 06/27/18 12:00 06/27/18 12 :02 000 unit/ Dextrose IV 07/27/18 11:59 155 mls Q4H CHRISTINE Administration Ibuprofen 600 mg 06/27/18 06:47 Motrin PO ONCE PRN post , pain Lidocaine HCl 300 mg 06/27/18 06:47 Lidocaine Hcl 1% SC 12/24/18 06:46 ONCE PRN episiotomy Magnesium Sulfate 454 gm 06/27/18 06:47 Epsom Salt TP 12/24/18 06:46 Q1H PRN perineal discomfort Misoprostol 800 - 1,000 mcg 06/27/18 06:47 Cytotec PO 12/24/18 06:46 ONCE PRN Vaginal Atony/Bleeding [place] Oil 118 ml 06/27/18 06:47 Sweet Oil MISC 12/24/18 06:46 ONCE PRN perineal massage Terbutaline Sulfate 0.25 mg 06/27/18 06:47 Brethine IV 12/24/18 06:46 ONCE PRN Tachysystole Discontinued Medications Generic Name Dose Route Start Last Admin Trade Name Freq PRN Reason Stop Dose Admin Ammonia (Aromatic Spirit) Confirm 06/27/18 10:34 Ammonia Aromatic Administered 06/27/18 10:35 Dose 1 each IH .STK-MED ONE Fentanyl/Bupivacaine HCl Confirm 06/27/18 13:14 Fentanyl/Bupivacaine/Ns 2 Mcg/Ml 0.1% (Premix Administered 06/27/18 13:15 Dose 100 ml EP .STK-MED ONE Lactated Ringer's 500 mls @ 500 mls/hr 06/27/18 06:47 Lr IV 06/27/18 09:44 PRN PRN Maternal Hypotension Penicillin G Potassium 5,000, 110 mls @ 110 mls/hr 06/27/18 07:45 06/27/18 08 :14 000 unit/ Dextrose IV 06/27/18 08:44 110 mls ONCE ONE Administration Lidocaine HCl Confirm 06/27/18 10:34 Lidocaine Hcl 1% Administered 06/27/18 10:35 Dose 300 mg .ROUTE .STK-MED ONE Misoprostol Confirm 06/27/18 10:34 Cytotec Administered 06/27/18 10:35 Dose 1,000 mcg .ROUTE .STK-MED ONE [place] Oil Confirm 06/27/18 10:34 Sweet Oil Administered 06/27/18 10:35 Dose 118 ml MISC .STK-MED ONE Oxytocin Confirm 06/27/18 10:34 Pitocin Administered 06/27/18 10:35 Dose 40 unit .ROUTE .STK-MED ONE Phenylephrine HCl Confirm 06/27/18 13:14 Neosynephrine Administered 06/27/18 13:15 Dose 1,000 mcg .ROUTE .STK-MED ONE Terbutaline Sulfate Confirm 06/27/18 10:34 Brethine Administered 06/27/18 10:35 Dose 1 mg .ROUTE .STK-MED ONE - Vital Signs Height/Weight (Nursing): Height 160.02 cm Weight 79.832 kg - Focused Exam Neck exam: FROM Mallampati Score: Class 3 Mouth exam: normal dental/mouth exam Pulmonary: no respiratory distress, no rales or rhonchi, clear to auscultation Cardiovascular: regular rate and rhythym, no murmur, rub, or gallop Labs: 06/27/18 06:45 Patient ABO/Rh A NEGATIVE 06/27/18 06:45 - Plan Consent Signed and on Chart: Yes Patient/Guardian Understands and Agrees to Plan: Yes
[2018-06-27] MEDS ORDERED: BUPIVACAINE 0.25% 10 ML SDV ONE (13:53)
[2018-06-27] MEDS ORDERED: LR 500 ML IV SCH (14:00)
[2018-06-27] MEDS ORDERED: fentaNYL 2MCG/ML/BUP 0.1% RTU 100 ML EP SCH (14:00)
[2018-06-27] MEDS: ACETAMINOPHEN 500 MG TAB PO SCH (15:12)
[2018-06-27] MEDS ORDERED: HYDROCORTISONE 0.5% CREAM TP PRN (17:37)
[2018-06-27] MEDS ORDERED: SIMETHICONE 80 MG TAB CHEW PO PRN (17:37)
[2018-06-27] MEDS ORDERED: oxyCODONE IR 5 MG TAB PO PRN (17:37)
--- NOTE | 2018-06-27 17:37 | OBDEL ---
Info Type: Vaginal Presentation at Delivery: Vertex L&D Analgesia/Anesthesia Type: Epidural GBS+: Yes Antibiotic Used for + GBS: Ampicillin (PCN x 3 doses) Intrapartum Medications: Generic Name Dose Route Start Last Admin Trade Name Freq PRN Reason Stop Dose Admin Acetaminophen 1,000 mg 06/27/18 15:15 06/27/18 15:12 Tylenol PO 12/24/18 15:14 1,000 mg Q8HRS CHRISTINE Administration Lactated Ringer's 1,000 mls @ 0 mls/hr 06/27/18 06:47 06/27/18 08:14 Lr IV 06/28/18 06:46 1,000 mls PRN PRN Administration SEE PROTOCOL CONDITIONS Protocol Per Protocol Oxytocin/Lactated Ringer's 500 mls @ 0 mls/hr 06/27/18 06:47 06/27/18 10:04 Pitocin 30 Units/Lr (Premix) IV 12/24/18 06:46 500 mls CONT CHRISTINE Administration Protocol Per Protocol Penicillin G Potassium 2,500, 155 mls @ 155 mls/hr 06/27/18 12:00 06/27/18 15 :58 000 unit/ Dextrose IV 07/27/18 11:59 155 mls Q4H CHRISTINE Administration Discontinued Medications Generic Name Dose Route Start Last Admin Trade Name Freq PRN Reason Stop Dose Admin Penicillin G Potassium 5,000, 110 mls @ 110 mls/hr 06/27/18 07:45 06/27/18 08 :14 000 unit/ Dextrose IV 06/27/18 08:44 110 mls ONCE ONE Administration Indications for Delivery: Elective Vaginal Delivery - Delivery Provider Delivery Physician/CNM: Porfirio Del Rosario - Labor and Delivery Onset of Contractions Date: 06/27/18 Onset of Contractions Time: 10:00 Onset of Contractions Type: Augmented Rupture of Membranes Date: 06/27/18 Rupture of Membranes Time: 12:30 Rupture of Membranes Type: Artificial Amniotic Fluid Color: Clear Dilation Complete Date: 06/27/18 Dilation Complete Time: 16:58 Placenta Delivery Date: 06/27/18 Placenta Delivery Time: 17:19 Total Hours of Labor: 7 Non-surgical Procedures: Amniotomy Laceration: 2nd Degree, Other (Specify) (Right peyton-urethral) Repair: 3-0 Vaginal Sponge Count Correct: Yes Vaginal Needle Count Correct: Yes Vaginal Sweep Performed: Yes EBL: 200 Delivery Events: Nuchal Cord (x1, loose and reduced) Delivery Comment: Scheduled IOL for this AM, post-dates/elective/AMA. 4cm [place] Data JACINTA: 06/22/18 Gestational Age: 40 week(s) and 5 day(s) ICD10 Worksheet Patient Problems: Problems Problem Status Onset Missed Acute
[2018-06-28] MEDS: IBUPROFEN 600 MG TAB PO PRN ×5 (00:02→18:36)
[2018-06-28] MEDS: ACETAMINOPHEN 500 MG TAB PO SCH ×3 (00:02→16:51)
[2018-06-28] MEDS: ACETAMINOPHEN 325 MG TAB PO PRN ×3 (06:01→18:36)
[2018-06-28] MEDS: DOCUSATE SODIUM 100 MG CAP PO PRN ×2 (09:19→22:03)
--- NOTE | 2018-06-28 10:27 | OBPP ---
Progress Note Assessment/Plan: Assessment: 33 y/o PPD #1 s/p after elective IOL @ 40 5/7 weeks. Plan: support and routine PPC. D/c home tomorrow. 06/28/18 10:26 Subjective/ Course: 06/28/18 10:24 Pt is doing well. She denies pain and is doing well with Ibuprofen and Tylenol. She is ambulating and voiding without difficulty and has min lochia. Breast feeding is going well. Objective: 06/28/18 06:07 Patient ABO/Rh A NEGATIVE 06/27/18 06:45 Temp Pulse Resp BP Pulse Ox 36.6 C 86 14 118/84 H 94 06/28/18 08:00 06/28/18 08:00 06/28/18 08:00 06/28/18 08:00 06/28/18 08:00 Uterine Position/Fundal Height: Umbilicus -2 Uterine Tone: Firm Physical Exam - Physical Exam General Appearance: alert, no apparent distress Neck: non-tender, full range of motion, supple Respiratory: chest non-tender, lungs clear, normal breath sounds Cardiac/Chest: regular rate, rhythm Abdomen: normal bowel sounds Extremities: swelling (no), Dl's sign (neg)
--- NOTE | 2018-06-28 15:00 | POSTANESTH ---
Post Anesthetic Evaluation Cardiovascular Status: Normal, Stable Respiratory Status: Normal, Stable Level of Consciousness/Mental Status: Can Participate in Eval Pain Control: Adequate, Prn Tx Ordered Nausea/Vomiting Control: Adequate, Prn Tx Ordered Complications Possibly Related to Anesthesia: None Noted Notes: s/p JOHN no adverse effects, no complaints.
[2018-06-29] MEDS: ACETAMINOPHEN 325 MG TAB PO PRN ×2 (00:27→06:18)
[2018-06-29] MEDS: IBUPROFEN 600 MG TAB PO PRN ×2 (00:27→06:19)
[2018-06-29] MEDS: ACETAMINOPHEN 500 MG TAB PO SCH (01:12)
[2018-06-29 09:30] VITALS: BP 117/83
--- NOTE | 2018-06-29 10:39 | OBPP ---
Progress Note Assessment/Plan: Assessment: 1) 33 y/o G4 now P2 s/p @ 40 5/7 wks for elective IOL PPD #2 - pt is stable A-, RI, GBS pos. 2) Hypothyroid - stable on meds 3) Rh negative - s/p RhoGam Plan: Plan for d/c home today Instructions reviewed with pt Rx given for Apno cream Pelvic rest Cont PNV, Motrin and colace prn RTC in 3 weeks for mood check and 6 weeks for pp visit 06/29/18 10:39 Subjective/ Course: 06/28/18 10:24 Pt is doing well. She denies pain and is doing well with Ibuprofen and Tylenol. She is ambulating and voiding without difficulty and has min lochia. Breast feeding is going well. 06/29/18 10:41 Pt seen and examined. Doing well with no complaints. Minimal cramping, relief with Motrin. Mod lochia. She is OOB, rigoberto regular diet, voiding without difficulty and passing flatus. No BM yet. BF is going well. Ready to go home, but waiting to have baby boy circumcised. Objective: 06/28/18 06:07 Patient ABO/Rh A NEGATIVE 06/27/18 06:45 Temp Pulse Resp BP Pulse Ox 36.1 C 79 15 117/83 H 94 06/29/18 08:00 06/29/18 08:00 06/29/18 08:00 06/29/18 08:00 06/29/18 08:00 Uterine Position/Fundal Height: Umbilicus -2 Uterine Tone: Firm Physical Exam - Physical Exam General Appearance: WD/WN, alert, no apparent distress Respiratory: lungs clear, normal breath sounds Cardiac/Chest: regular rate, rhythm Abdomen: normal bowel sounds, non-tender, soft, flatus (+) Extremities: non-tender, normal inspection Skin: normal color, warm/dry Neuro/Psych: alert, oriented x 3
--- NOTE | 2018-06-29 10:44 | OBGCSDC ---
General Delivery Information - General Info : 4 Para: 2 Abortions: 2 Type: Vaginal L&D Analgesia/Anesthesia Type: Epidural Admission Date: 06/27/18 Labs: Patient ABO/Rh A NEGATIVE 06/27/18 06:45 Hct 36.1 % (38.0-47.0) L 06/28/18 06:07 - Hospital Course : 06/28/18 10:24 Pt is doing well. She denies pain and is doing well with Ibuprofen and Tylenol. She is ambulating and voiding without difficulty and has min lochia. Breast feeding is going well. 06/29/18 10:41 Pt seen and examined. Doing well with no complaints. Minimal cramping, relief with Motrin. Mod lochia. She is OOB, rigoberto regular diet, voiding without difficulty and passing flatus. No BM yet. BF is going well. Ready to go home, but waiting to have baby boy circumcised. Vaginal - Delivery Provider Delivery Physician/CNM: Porfirio Del Rosario - Diagnosis Labor: Augmented Rupture of Membranes Type: Artificial Amniotic Fluid Color: Clear Laceration: 2nd Degree, Other (Specify) (Right peyton-urethral) Repair: 3-0 Delivery Events: Nuchal Cord (x1, loose and reduced) - Procedures Non-surgical Procedures: Amniotomy - Delivery Non-surgical Procedures: Amniotomy EBL: 200 Data JACINTA: 06/22/18 Gestational Age: 41 week(s) and 0 day(s) Young Delivery Date: 06/27/18 Delivery Time: 17:09 Sex of : Male [place] Weight (gm): 3778 g Score (1 Min): 8 Score (5 Min): 9 Discharge Information - Discharge Information Condition: Good Instruction/Follow Up: Four Weeks (3 weeks for a mood check), Six Weeks (for a routine pp visit)
== END 2018-06-29 12:30 | disposition home or self-care (01) | DRG 807 ==
LOC: FLD 05:35 → FOB 20:56
PROVIDERS: ADMIT Obstetrics & Gynecology; ATTEND Obstetrics & Gynecology
PROC: 10907ZC Drainage of Amniotic Fluid, Therapeutic from Products of Conception, Via Natural or Artificial Opening (ICD-10-PCS; principal; 2018-06-27)
PROC: 0KQM0ZZ Repair Perineum Muscle, Open Approach (ICD-10-PCS; principal; 2018-06-27)
PROC: 10E0XZZ Delivery of Products of Conception, External Approach (ICD-10-PCS; principal; 2018-06-27)
DX: O48.0 Post-term pregnancy (principal); O70.1 Second degree perineal laceration during delivery; O99.283 Endocrine, nutritional and metabolic diseases complicating pregnancy, third trimester; E03.9 Hypothyroidism, unspecified; O99.820 Streptococcus B carrier state complicating pregnancy; O69.81X0 Labor and delivery complicated by cord around neck, without compression, not applicable or unspecified; Z3A.40 40 weeks gestation of pregnancy; Z37.0 Single live birth
CPT/HCPCS: J2370; J2540; J2590; J3105